=== PATIENT | female | born 1995 | race Two or more races ===

== ENCOUNTER 2022-04-07 21:04 | Emergency (ER) | payer SELFPAY ==
[~2022-04-07] VITALS: Ht 180.3 cm; Wt 68.0 kg
--- NOTE | 2022-04-07 21:10 | NUR ---
BATSHEVA 79 FOR ALLERGIC REACTION S/P TAKING PEANUTS. GAVE HERSELF EPI THEN WAS SEEN AT URGENT CARE WHERE SHE REC'D EPI, BENADRYL, ZOFRAN & SOLUMEDROL. PLACED ON BED, AWAKE- ALERT NOT RESPONDING TO QUESTIONS, BREATHING EVEN AND UNLABORED SATURATING AT 98%RA.
[2022-04-07] MEDS ORDERED: ONDANSETRON HCL/PF 4 MG/2 ML VIAL IVP ONE (21:30)
[2022-04-07] MEDS ORDERED: methylPREDNISolone SOD SUCC 125 MG/2ML VIAL IV ONE (21:30)
[2022-04-07] MEDS ORDERED: IV NS 0.9% 1,000 ML BAG IV ONE (21:30)
[2022-04-07] MEDS ORDERED: diphenhydrAMINE HCL 50 MG/ML VIAL IV ONE (21:30)
[2022-04-07] MEDS ORDERED: FAMOTIDINE/PF INJ 20 MG/2 ML VIAL IV ONE ×2 (21:30→21:47)
[2022-04-07] MEDS ORDERED: PRED50TA PO (23:07)
[2022-04-07] MEDS ORDERED: EPIN0.3P3 IM (23:07)
--- NOTE | 2022-04-07 23:20 | NUR ---
Patient discharged to home in stable condition. Written and verbal after care instructions given. Patient verbalizes understanding of instruction.
[2022-04-07 23:21] VITALS: BP 131/78
== END 2022-04-07 23:21 | disposition home or self-care (01) ==
LOC: ER 21:07
DX: T78.1XXA Other adverse food reactions, not elsewhere classified, initial encounter (principal); R06.02 Shortness of breath; Z91.018 Allergy to other foods; Z79.899 Other long term (current) drug therapy; X58.XXXA Exposure to other specified factors, initial encounter
CPT/HCPCS: 99283; 96374; 71045; 96361; J3490; J7030